=== PATIENT | female | born 1945 | race Hispanic/Latino ===

== ENCOUNTER 2024-12-14 13:38 | Emergency (ER) | payer MEDICARE ==
[~2024-12-14] VITALS: Ht 152.4 cm; Wt 73.9 kg
[2024-12-14 13:57] VITALS: PULSE 68; RESP 18; TEMP 97.2
[2024-12-14] MEDS: KETOROLAC TROMETHAMINE 30 MG/ML VIAL IV STA (15:21)
[2024-12-14 15:43] VITALS: BP 180/81; PULSE 60; RESP 18; O2SAT 98
== END 2024-12-14 15:45 | disposition home or self-care (01) ==
LOC: FSED 13:42
DX: R10.9 Unspecified abdominal pain (principal); E11.65 Type 2 diabetes mellitus with hyperglycemia; I10 Essential (primary) hypertension; E78.5 Hyperlipidemia, unspecified; Z95.5 Presence of coronary angioplasty implant and graft
CPT/HCPCS: 74176; 80053; 81003; 85025; 99283; J1885